=== PATIENT | female | born 1965 | race Caucasian/White ===

== ENCOUNTER 2024-01-07 10:13 | Emergency (ER) | payer OTHER ==
[2024-01-07 10:18] VITALS: BP 186/91; PULSE 78; RESP 18; TEMP 97.6; BMI 27.4
[2024-01-07] MEDS ORDERED: ONDANSETRON 4 MG/2 ML VIAL ONE (11:37)
[2024-01-07] MEDS ORDERED: ACETAMINOPHEN INJECTION 100 ML ONE (11:37)
[2024-01-07] MEDS ORDERED: FAMOTIDINE 20 MG/50 ML IVPB 20 MG/50 ML MG IVPB ONE (11:37)
[2024-01-07] MEDS: ACETAMINOPHEN 1000 MG/100 ML BAG IVPB ONE (12:00)
[2024-01-07] MEDS: ONDANSETRON 4 MG/2 ML VIAL IVPUSH ONE (12:01)
[2024-01-07] MEDS: FAMOTIDINE 20 MG/50 ML IVPB 20 MG/50 ML MG IVPB ONE (12:01)
[2024-01-07 12:07] LABS: BASO % 0.4 % (0-2.0); EOS % 0.2 % (0-4.5); HEMATOCRIT 42.7 % (32.4-45.2); LYMPH % 16.4 % (8-40); MCH 30.3 pg (25.7-33.7); MCHC 32.9 g/dl (32.0-36.0); MEAN CELL VOLUME 92.1 fl (80-96); MEAN PLT VOLUME 8.9 fl (7.5-11.1); MONO % 2.2 % (3.8-10.2); NEUT % 80.8 % (42.8-82.8); PLATELET COUNT 216 10^3/uL (134-434); RBC 4.64 M/mm3 (3.60-5.2); RDW 13.3 % (11.6-15.6); WHITE BLOOD COUNT 6.6 K/mm3 (4.0-10.0)
[2024-01-07 12:25] LABS: POTASSIUM 3.8 mmol/L (3.5-5.1)
[2024-01-07 12:27] LABS: ALBUMIN 4.3 g/dl (3.4-5.0); BLOOD UREA NITROGEN 10.2 mg/dL (7-18)
[2024-01-07 12:30] LABS: CREATININE 0.8 mg/dL (0.55-1.3)
[2024-01-07 12:31] LABS: PHOSPHOROUS 2.8 mg/dL (2.5-4.9)
[2024-01-07 12:32] LABS: BILIRUBIN,TOTAL 0.6 mg/dL (0.2-1)
[2024-01-07] MEDS ORDERED: METOCLOPRAMIDE HCL INJECTION 10 MG/2 ML VIAL ONE (13:58)
[2024-01-07] MEDS: METOCLOPRAMIDE HCL INJECTION 10 MG/2 ML VIAL IVPB ONE (14:06)
[2024-01-07 17:44] LABS: HIV INTERPRETATION NEGATIVE (NEGATIVE)
== END 2024-01-07 16:57 | disposition home or self-care (01) ==
LOC: JER 10:13
PROC: 3E033GC Introduction of Other Therapeutic Substance into Peripheral Vein, Percutaneous Approach (ICD-10-PCS; principal; 2024-01-07)
PROC: 3E033GC Introduction of Other Therapeutic Substance into Peripheral Vein, Percutaneous Approach (ICD-10-PCS; 2024-01-07)
PROC: 3E033GC Introduction of Other Therapeutic Substance into Peripheral Vein, Percutaneous Approach (ICD-10-PCS; 2024-01-07)
PROC: 3E033NZ Introduction of Analgesics, Hypnotics, Sedatives into Peripheral Vein, Percutaneous Approach (ICD-10-PCS; 2024-01-07)
DX: R11.2 Nausea with vomiting, unspecified (principal); R10.13 Epigastric pain; Z20.822 Contact with and (suspected) exposure to COVID-19
CPT/HCPCS: 0241U-QW; 36415; 71045-TC-FY; 74177-TC; 80053; 83690; 83735; 84100; 84484; 85025; 86803; 87389; 93005; 93010; 96365; 96375; 99285-25; J0131